=== PATIENT | male | born 1990 | race Two or more races ===

== ENCOUNTER 2018-01-05 22:33 | Emergency (ER) | payer OTHER ==
--- NOTE | 2018-01-05 23:11 | ED ---
Complex/Multi-Sys Presentation - HPI Summary HPI Summary: 27 y/o male presents to the ED c/o severe ABD pain aggravated with BM; pain located mostly in the epigastric region and lower ABD for several weeks. Not alleviated by anything. Pt also c/o diarrhea. Pt c/o back pain when he bends over. Smoker. PMHx asthma. This is scribe Ed Ines documenting for attending, Faisal Coyle MD. - History Of Current Complaint Chief Complaint: EDGeneral Hx Obtained From: Patient Onset/Duration: Lasting Weeks, Still Present Timing: Constant Location: Pain At: - ABD Associated Signs And Symptoms: Positive: Diarrhea, Abdominal Pain, Other - back pain - Allergies/Home Medications Allergies/Adverse Reactions: Allergies Allergy/AdvReac Type Severity Reaction Status Date / Time No Known Allergies Allergy Verified 01/05/18 22:45 PMH/Surg Hx/FS Hx/Imm Hx Previously Healthy: No Cardiovascular History: Denies: Hx Congestive Heart Failure Respiratory History: Reports: Hx Asthma Infectious Disease History: No Infectious Disease History: Denies: Traveled Outside the [place] in Last 30 Days - Family History Known Family History: Positive: Unknown - Social History Hx Tobacco Use: Yes Smoking Status (MU): Current Every Day Smoker Review of Systems Constitutional: Negative Eyes: Negative ENT: Negative Cardiovascular: Negative Respiratory: Negative Positive: Abdominal Pain, Diarrhea Genitourinary: Negative Musculoskeletal: Other - back pain Skin: Negative Neurological: Negative Psychological: Normal All Other Systems Reviewed And Are Negative: Yes Physical Exam - Summary Physical Exam Summary: Appearance: Well appearing, no pain distress Skin: warm, dry, reflects adequate perfusion Head/face: normal Eyes: EOMI, CARLOS ENT: normal Neck: supple, non-tender Respiratory: CTA, breath sounds present Cardiovascular: RRR, pulses symmetrical Abdomen: non-tender, soft Bowel: present Musculoskeletal: normal, strength/ROM intact Neuro: normal, sensory motor intact, A&Ox3 Triage Information Reviewed: Yes Vital Signs On Initial Exam: Initial Vitals Temp Pulse Resp BP Pulse Ox 98.0 F 72 16 110/63 97 01/05/18 22:41 01/05/18 22:41 01/05/18 22:41 01/05/18 22:41 01/05/18 22:41 Vital Signs Reviewed: Yes Diagnostics - Vital Signs Vital Signs Temp Pulse Resp BP Pulse Ox 01/05/18 22:41 98.0 F 72 16 110/63 97 - Laboratory Result Diagrams: 01/05/18 23:34 01/05/18 23:34 Lab Statement: Any lab studies that have been ordered have been reviewed, and results considered in the medical decision making process. - Radiology CXr Xray Interpretation: No Acute Changes Radiology Interpretation Completed By: ED Physician - CT ABD/PEL CT CT Interpretation: No Acute Changes CT Interpretation Completed By: Radiologist - EKG 1 EKG Interpretation: 23:39 - SR @ 70 BPM. No acute changes Re-Evaluation - Re-Evaluation 1 Re-Evaluation Time: 01:30 Comment: discuss test results, plan to d/c Complex Multi-Symp Course/Dx Assessment/Plan: 27 y/o male presents to the ED c/o severe ABD pain aggravated with BM; pain located mostly in the epigastric region and lower ABD for several weeks. EKG @ 23:39 - SR @ 70 BPM. No acute changes. CXR and ABD/PEL CT negative for acute pathology. Pt will be d/c home with f/u with PCP. - Diagnoses Differential Diagnoses/HQI/PQRI: Other - pancreatitis/renal colic Provider Diagnoses: Abdominal pain, Asthma Discharge - Sign-Out/Discharge Documenting (check all that apply): Patient Departure - Discharge Plan Condition: Stable Disposition: HOME Prescriptions: Pantoprazole TAB (NF) [Protonix TAB (NF)] 40 mg PO DAILY #30 tab Patient Education Materials: Asthma (ED), Abdominal Pain (ED) Forms: *Work Release Referrals: [facility] – [place] PHYSICIAN REFERRAL [Outside] - 4 Days (PLEASE F/U IN 3-5 DAYS) Additional Instructions: RETURN TO THE ED FOR CHANGING/WORSENING SYMPTOMS - Billing Disposition and Condition Condition: STABLE Disposition: Home
[2018-01-05 23:46] LABS: ABS Basophils 0.1 10^3/ul (0-0.2); ABS Eosinophils 0.8 10^3/ul (0-0.6); ABS Lymphocytes 2.9 10^3/ul (1.0-4.8); ABS Monocytes 0.6 10^3/ul (0-0.8); ABS Neutrophils 3.7 10^3/ul (1.5-7.7); ABS Nucleated RBC 0 10^3/ul; Eosinophil % 9.9 % (0-6); Hematocrit 45 % (42-52); Hemoglobin 15.2 g/dl (14.0-18.0); Lymphocyte % 35.7 % (25-47); Mean Corpuscular HGB Conc 34 g/dl (31-36); Mean Corpuscular Hemoglobin 32 pg (27-31); Mean Corpuscular Volume 93 fL (80-94); Mean Platelet Volume 8.5 um3 (7.4-10.4); Nucleated Red Blood Cells % 0.1; Platelet Count 199 10^3/ul (150-450); Red Blood Count 4.82 10^6/ul (4.00-5.40); Red Cell Distribution Width 14 % (10.5-15); White Blood Count 8.1 10^3/ul (3.5-10.8)
[2018-01-05 23:55] LABS: INR 1.25 (0.77-1.02)
[2018-01-06 00:04] LABS: EGFR Non-African American 102.5 (>60)
[2018-01-06] MEDS: Albuterol/Ipratropium NEB.SOL* Albuterol 2.5 MG/Ipratropium 0.5 MG 3 ML INH ONE ×2 (00:18→00:22)
[2018-01-06 01:44] VITALS: BP 102/64
--- NOTE | 2018-01-06 07:33 | RAD ---
Indication: Chest pain. 2 views of the chest are reviewed. Dual-energy PA views are present. No mediastinal shift is noted. Heart is of normal size and configuration. Lung schumacher appear clear. IMPRESSION: No active cardiopulmonary disease is noted.
--- NOTE | 2018-01-06 09:40 | RAD ---
Indication: Epigastric and bilateral lower abdominal pain. CT of the abdomen and pelvis was performed without oral or IV contrast administration. Coronal and sagittal reconstructed images were obtained. The lung bases demonstrate no pleural fluid, nodules or masses. Heart is of normal size without evidence of pericardial effusion. The liver is normal in size. No focal lesions or intrahepatic duct dilatation is noted. The gallbladder demonstrates no calcified gallstones and is partially contracted. Pancreas demonstrates no mass or pancreatic duct dilatation. Spleen is normal in size. No adrenal masses are noted. The kidneys demonstrate no hydronephrosis in either kidney, although nonobstructing calculi is noted in the midportion of the right kidney. Aorta and inferior vena cava are unremarkable. No dilated loops of bowel are noted. CT of the pelvis demonstrates no retroperitoneal or pelvic adenopathy. Normal appendix is likely present. Trace amount of free fluid is noted in the cul-de-sac. No dilated loops of bowel are noted. No hernias are identified. IMPRESSION: 1. Right renal calculus. No evidence of obstructive uropathy is otherwise noted. 2. No abnormal masses or fluid collections are identified. No hernias are present.
== END 2018-01-06 01:46 | disposition home or self-care (01) ==
LOC: ED 22:33
DX: R10.9 Unspecified abdominal pain (principal); J45.909 Unspecified asthma, uncomplicated; R19.7 Diarrhea, unspecified; M54.9 Dorsalgia, unspecified; F17.210 Nicotine dependence, cigarettes, uncomplicated
CPT/HCPCS: 36415; 71046; 74176; 80053; 83690; 84484; 85025; 85610; 85730; 93005; 99283; A9270-GY

== ENCOUNTER 2018-11-20 21:21 | Emergency (ER) | payer OTHER ==
[2018-11-20] MEDS ORDERED: Albuterol/Ipratropium NEB.SOL* Albuterol 2.5 MG/Ipratropium 0.5 MG 3 ML INH ONE (21:39)
[2018-11-20] MEDS ORDERED: predniSONE TAB* 20 MG PO ONE (21:40)
[2018-11-20] MEDS ORDERED: Albuterol 2.5 MG/3 ML NEB.SOL* (0.083%) INH ONE (21:44)
[2018-11-20] MEDS: Albuterol 2.5 MG/3 ML NEB.SOL* (0.083%) INH SCH ×2 (21:47→22:04)
--- NOTE | 2018-11-20 22:01 | ED ---
Shortness of Breath - HPI Summary HPI Summary: This patient is a 28 year old male presenting to [facility] with a chief complaint of shortness of breath 15 minutes ago. The patient was playing football and states he started experiencing shorteness of breath and wheezes. The patient has a Hx of asthma and came in to get a breathing treatment. - History of Current Complaint Chief Complaint: EDShortnessOfBreath Time Seen by Provider: 11/20/18 21:37 Hx Obtained From: Patient Onset/Duration: Sudden Onset, Lasting Minutes, Still Present Current Severity: Mild Dyspnea At: Exertion - Allergy/Home Medications Allergies/Adverse Reactions: Allergies Allergy/AdvReac Type Severity Reaction Status Date / Time No Known Allergies Allergy Verified 01/05/18 22:45 PMH/Surg Hx/FS Hx/Imm Hx Cardiovascular History: Denies: Hx Congestive Heart Failure Respiratory History: Reports: Hx Asthma - Surgical History Surgery Procedure, Year, and Place: as a child pt states rt abd SX ? [facility] ? [facility] Infectious Disease History: No Infectious Disease History: Denies: Traveled Outside the [place] in Last 30 Days - Family History Known Family History: Positive: Unknown - Patient adopted - Social History Alcohol Use: None Substance Use Type: Reports: None Hx Tobacco Use: Yes Smoking Status (MU): Current Every Day Smoker Review of Systems Negative: Fever Positive: Shortness Of Breath All Other Systems Reviewed And Are Negative: Yes Physical Exam - Summary Physical Exam Summary: VITAL SIGNS: Reviewed. GENERAL: Patient is a well-developed and nourished MALE who is lying comfortable in the stretcher. Patient is not in any acute respiratory distress. HEAD AND FACE: No signs of trauma. No ecchymosis, hematomas or skull depressions. No sinus tenderness. EYES: PERRLA, EOMI x 2, No injected conjunctiva, no nystagmus. EARS: Hearing grossly intact. Ear canals and tympanic membranes are within normal limits. MOUTH: Oropharynx within normal limits. NECK: Supple, trachea is midline, no adenopathy, no JVD, no carotid bruit, no c- spine tenderness, neck with full ROM. CHEST: Symmetric, no tenderness at palpation LUNGS: Clear to auscultation bilaterally. Inspiratory and expiratory wheezes. CVS: Regular rate and rhythm, S1 and S2 present, no murmurs or gallops appreciated. ABDOMEN: Soft, non-tender. No signs of distention. No rebound no guarding, and no masses palpated. Bowel sounds are normal. EXTREMITIES: FROM in all major joints, no edema, no cyanosis or clubbing. NEURO: Alert and oriented x 3. No acute neurological deficits. Speech is normal and follows commands. SKIN: Dry and warm Triage Information Reviewed: Yes Vital Signs On Initial Exam: Initial Vitals Temp Pulse Resp BP Pulse Ox 98.3 F 102 26 120/73 99 11/20/18 21:24 11/20/18 21:24 11/20/18 21:24 11/20/18 21:24 11/20/18 21:24 Vital Signs Reviewed: Yes Diagnostics - Vital Signs Vital Signs Temp Pulse Resp BP Pulse Ox 11/20/18 21:47 79 16 100 11/20/18 21:24 98.3 F 102 26 120/73 99 - Laboratory Lab Statement: Any lab studies that have been ordered have been reviewed, and results considered in the medical decision making process. Course/Dx - Course Course Of Treatment: This patient is a 28 year old male presenting to [facility] with a chief complaint of shortness of breath 15 minutes ago. The patient was given breathing treatments. Upon reevaluation post breathing treatments his lungs were clear and he felt better and was ready to go home. A plan for discharge was discussed with the patient and he was agreeable with this plan. - Diagnoses Provider Diagnoses: Asthma exacerbation Discharge - Sign-Out/Discharge Documenting (check all that apply): Patient Departure - Discharge Patient Received Moderate/Deep Sedation with Procedure: No - Discharge Plan Condition: Stable Disposition: HOME Patient Education Materials: Asthma (ED) Referrals: [facility] – [place] PHYSICIAN REFERRAL [Outside] Additional Instructions: Return to ED with any new or worsening symptoms. - Attestation Statements Document Initiated by Scribe: Yes Documenting Scribe: Neymar Duckworth Provider For Whom Scribe is Documenting (Include Credential): Priscila Chapa MD Scribe Attestation: Neymar Horton, scribed for Priscila Chapa MD on 11/20/18 at 2221. Status of Scribe Document: Ready
[2018-11-20 22:40] VITALS: BP 111/68
== END 2018-11-20 22:39 | disposition home or self-care (01) ==
LOC: ED 21:21
DX: J45.901 Unspecified asthma with (acute) exacerbation (principal); R06.02 Shortness of breath; F17.210 Nicotine dependence, cigarettes, uncomplicated
CPT/HCPCS: 99282; A9270-GY; J7512